=== PATIENT | female | born 1960 | race Caucasian/White ===

== ENCOUNTER 2023-02-25 14:11 | Emergency (ER) | payer OTHER ==
[~2023-02-25] VITALS: Ht 165.1 cm; Wt 49.9 kg
[2023-02-25 14:24] VITALS: BP 101/61
--- NOTE | 2023-02-25 15:47 | NUR ---
PATIENT LEFT WITHOUT BEING SEEN BY DR. SALDANA. NO FURTHER CARE PROVIDED FOR PATIENT.
== END 2023-02-25 15:47 | disposition left against medical advice (07) ==
LOC: MED 14:11
DX: R10.9 Unspecified abdominal pain (principal); R11.2 Nausea with vomiting, unspecified; Z53.21 Procedure and treatment not carried out due to patient leaving prior to being seen by health care provider
CPT/HCPCS: 99281